=== PATIENT | female | born 1990 | race Caucasian/White ===

== ENCOUNTER 2020-09-22 16:17 | Inpatient (IN) | payer OTHER, SELFPAY ==
--- NOTE | 2020-09-22 | ECG_ITS ---
Test Reason : CHEST PAIN Blood Pressure : / mmHG Vent. Rate : 110 BPM Atrial Rate : 110 BPM P-R Int : 134 ms QRS Dur : 086 ms QT Int : 322 ms P-R-T Axes : 061 051 044 degrees QTc Int : 435 ms Sinus tachycardia Possible Left atrial enlargement Borderline ECG When compared with ECG of 06-JAN-2020 02:18, Nonspecific T wave abnormality has replaced inverted T waves in Anterior leads Referred By: Generic ED Physician Electronically Signed By:ISIS SCHULZ MD
[2020-09-22 16:42] VITALS: BP 158/76; PULSE 110; RESP 16; TEMP 36.8; O2SAT 97; BMI 23.6
[2020-09-22 20:11] VITALS: BP 153/72; PULSE 126; RESP 20; TEMP 37.9; O2SAT 97
--- NOTE | 2020-09-22 20:12 | ED_ITS ---
HPI - Anxiety General Chief Complaint: Anxiety Stated Complaint: chest pain Time Seen by Provider: 09/22/20 20:02 Source: patient Mode of arrival: ambulatory Limitations: no limitations History of Present Illness HPI narrative: 29-year-old female with past medical history of anxiety presents with multiple complaints. States have chest pain, difficulty breathing, sore throat, and panic. She has not report any specific stressors, but states that she has been having a difficult time taking deep breath, does not report to be on any hormones or control, denies any recent flights or travel. MD complaint: anxiety, heart racing and shortness of breath Onset (ago): day(s) Symptoms: dyspnea, chest pain, palpitations, extremity numbness/tingling and muscle cramps Severity: moderate Quality: constant History of similar episodes: Yes Provoking factors: none known Relieving factors: nothing Associated symptoms: denies other symptoms Related Data Home Medications Medication Instructions Recorded Confirmed hydroxyzine pamoate 1 cap PO TID PRN 09/22/20 09/22/20 Allergies Allergy/AdvReac Type Severity Reaction Status Date / Time No Known Allergies Allergy Verified 09/22/20 20:13 Review of Systems Review of Systems: Constitutional: No Fever, No Chills ENT/Mouth: No Ear Pain, No Nasal Congestion, No sore throat Eyes: No Eye Pain, No Swelling, No Redness Cardiovascular: Positive palpitations, positive Chest Pain, positive SOB Respiratory: No Cough, No Sputum, No Dyspnea Gastrointestinal: No Nausea, No Vomiting, No Diarrhea, No Hematochezia, No Melena Genitourinary: No Dysuria, No Urinary Frequency, No Hematuria Musculoskeletal: No Myalgias Skin: No Skin Lesions, No rash Neuro: No Weakness, No Numbness, No Paresthesias, No Dizziness, No Headache Psych: positive Anxiety, no Depression, no SI/HI Heme/Lymph: No Lymphadenopathy Endocrine: No Polyuria, No Polydipsia Yes all other systems are reviewed and are negative PMFSH Past Medical History Attestation statement: The following information was validated with the patient. Source: old records reviewed Social History Social History Alcohol intake: current Patient Tobacco Use Status: Former Tobacco user Smoked in Last 30 Days: Yes Use of substances other than those prescribed or required for medical reasons: Yes Substance Use Type: Marijuana Advance Directives: No Patient : No Physical Exam Vital Signs: Vital Signs: Last Vital Signs Temp 97.6 F 09/23/20 00:00 Pulse 91 09/23/20 00:00 Resp 20 09/23/20 00:00 BP 123/63 09/23/20 00:00 Pulse Ox 97 09/23/20 00:00 Body Mass Index 23.6 Appearance: Alert. Oriented X3. No acute distress. Head: Normal external exam. Normocephalic. Atraumatic. No Marte signs noted. No raccoon eyes noted Eyes: PERRLA. EOMI. Conjunctiva and sclera normal. Eyelids normal. ENT: TM's Normal. Pharynx normal. Uvula midline. Moist mucous membranes. No trismus noted. No drooling noted. No muffled voice noted. Neck: Normal inspection. Neck supple. No adenopathy. Thyroid Normal. No meningeal signs. No neck mass noted. CVS: Normal heart rate and rhythm. Heart sound normal. No murmurs noted. Pulses equal to all extremities. Respiratory: No respiratory distress. Painless inspiration. Breath sounds linnea l. No wheezes/rales/rhonchi noted. Chest nontender. No accessory muscle usage noted or decreased air movement noted. Abdomen: Soft and nontender. Bowel sounds normal in all 4 quadrants. No distention noted. No organomegaly noted. No visible injury noted. Back: No CVA tenderness. Full range of motion noted. Skin: Skin warm and dry. Normal skin color. Normal skin turgor. No rashes/lesions/lacerations noted. Extremities: No lower extremity edema. Extremities exhibit normal range of motion. Extremities nontender. Neuro: cranial nerves 2-12 intact, no focal neural deficits, strength 5/5 to all extremities, No motor deficit. No sensory deficit. Course Course Course Narrative: 29-year-old female presents with multiple complaints, most likely related to anxiety however she does have tachycardia and some shortness of breath. While she does not have any significant comorbidities for PE, I will order D-dimer, showed D-dimer be elevated we will pursue PE studies. EKG showed sinus tachycardia and she does report shortness of breath Multiple discussions regarding lab values and negative findings. Patient has had difficult time obtaining medication management for her anxiety, states that she was unable to make appointments secondary to COVID as well as her own scheduling conflicts. Her mom was just diagnosed with an adrenal mass, her grandmother is ill, and she feels that the weight of the world is a bit too much for her to handle at this time. She does have a history of psych admission to [facility], was started on lithium and risperidone all however the medications were not working appropriately for her. The provider that she was seeing at the time had her wean off of these medications. She has not been on any medications to help control anxiety and bipolar disorder since. She has been trying natural passing method such as yoga, meditation, and exercise however her efforts have not been effective. Lab values are unremarkable with no indication of organic reason for tachycardia and shortness breath, most likely related to panic and anxiety. Patient would like a psychiatric consult as well as crisis consult. Patient will be voluntary. 12:44 a.m.. Physician observation started at this time. Pending BHN and psychiatric consult. MDM - Anxiety Differential Diagnosis Differential diagnosis: Likely hyperventilation, panic disorder and acute anxiety Medical Records Attestation: I reviewed the patient's medical records. Lab Data Attestation: I reviewed the patient's lab results. Result diagrams: 09/22/20 20:34 09/22/20 20:34 Labs: Lab Results 09/22/20 09/22/20 09/22/20 Range/Units 20:34 20:34 20:34 WBC 9.2 (4.8-10.8) X10*3/uL RBC 4.97 (4.20-5.50) X10*6/uL Hgb 15.3 (12.0-16.0) g/dl Hct 44.6 (37-47) % MCV 89.7 (80-98) fL MCH 30.8 (27.0-33.0) pg MCHC 34.3 (31.0-35.0) g/dl RDW 12.2 (11.0-16.0) % Plt Count 289 (160-400) X10*3/uL MPV 9.8 (9.4-12.3) fL Immature Gran % (Auto) 0.3 (0.0-0.4) % Neut % (Auto) 76.2 H (45-73) % Lymph % (Auto) 16.7 L (20-40) % [place] % (Auto) 5.3 (2-11) % Eos % (Auto) 1.2 (0-4) % Baso % (Auto) 0.3 (0-2) % Lymph # (Auto) 1.5 (1.2-4.9) X10*3/uL [place] # (Auto) 0.5 (0.1-1.2) X10*3/uL Eos # (Auto) 0.1 (0.0-0.4) X10*3/uL Baso # (Auto) 0.0 (0.0-0.2) X10*3/uL Abs Immat Gran (auto) 0.03 (0.00-0.03) X10*3/uL Absolute Neuts (auto) 7.0 (2.0-8.3) X10*3/uL Absolute Nucleated RBC 0.000 (0.0-0.012) X10*3/uL Nucleated RBC % (auto) 0.0 (0.0-0.2) /100WBC D-Dimer < 200 NG/ML Sodium 140 (135-145) mmol/L Potassium 3.6 (3.3-5.1) mmol/L Chloride 105 (96-108) mmol/L Carbon Dioxide 24 (22-29) mmol/L Anion Gap 15 (12-20) BUN 6 L (9-16) mg/dL Creatinine 0.74 (0.5-1.4) mg/dL Estim Creat Clear Calc 115.2 Estimated GFR > 60 Random Glucose 106 (60-115) mg/dL Calcium 10.0 (8.4-10.2) mg/dL TSH 1.26 (0.32-4.0) uIU/mL ECG Data Attestation: I personally reviewed and interpreted this ECG as follows: ECG interpretation date: 09/22/20 ECG interpretation time: 16:32 Interpretation: Vent. rate 110 BPM IN interval 134 ms QRS duration 86 ms QT/QTc 322/435 ms P-R-T axes 61 51 44 Sinus tachycardia Possible Left atrial enlargement Borderline ECG When compared with ECG of 06-JAN-2020 02:18, Nonsp ecific T wave abnormality has replaced inverted T waves in Anterior leads Discharge Plan Discharge Clinical Impression: Acute anxiety, Panic disorder Prescriptions: No Action hydroxyzine pamoate 50 mg capsule 1 cap PO TID PRN (Reason: anxiety) RF: 0
[2020-09-22] MEDS: 0.9 % Sodium Chloride 1,000 ML 999 ML IVCONT (20:37)
[2020-09-22] MEDS: LORazepam 2 MG/ML VIAL 1 MG IVPUSH (20:40)
[2020-09-22 20:41] LABS: MANUAL DIFF FLAG NO
[2020-09-22 20:42] LABS: Basophils Percent Auto 0.3 % (0-2); Eosinophils Absolute Auto 0.1 X10*3/uL (0.0-0.4); Eosinophils Percent Auto 1.2 % (0-4); Hematocrit 44.6 % (37-47); Hemoglobin 15.3 g/dl (12.0-16.0); Imm Gran Abs Auto 0.03 X10*3/uL (0.00-0.03); Imm Gran Pct Auto 0.3 % (0.0-0.4); Lymphocytes Absolute Auto 1.5 X10*3/uL (1.2-4.9); Lymphocytes Percent Auto 16.7 % (20-40); Mean Corpuscular HGB Conc 34.3 g/dl (31.0-35.0); Mean Corpuscular Hemoglobin 30.8 pg (27.0-33.0); Mean Corpuscular Volume 89.7 fL (80-98); Mean Platelet Volume 9.8 fL (9.4-12.3); Monocytes Absolute Auto 0.5 X10*3/uL (0.1-1.2); Monocytes Percent Auto 5.3 % (2-11); Neutrophils Percent Auto 76.2 % (45-73); Platelet Count 289 X10*3/uL (160-400); Red Blood Count 4.97 X10*6/uL (4.20-5.50); Red Cell Distribution Width 12.2 % (11.0-16.0); White Blood Count 9.2 X10*3/uL (4.8-10.8)
[2020-09-22 20:54] LABS: D Dimer < 200 NG/ML
[2020-09-22 21:05] LABS: Anion Gap 15 (12-20); Blood Urea Nitrogen 6 mg/dL (9-16); Carbon Dioxide 24 mmol/L (22-29); Chloride 105 mmol/L (96-108); Creatinine Clr Calc Pharmacy 115.2; Estimated Glomerular Filt Rate > 60; Glucose Random 106 mg/dL (60-115); Potassium 3.6 mmol/L (3.3-5.1); Sodium 140 mmol/L (135-145)
[2020-09-22 21:26] LABS: Thyroid Stimulating Hormone 1.26 uIU/mL (0.32-4.0)
[2020-09-22 22:00] VITALS: RESP 16
--- NOTE | 2020-09-22 22:57 | PC.NURSE ---
pt feeling anxiouse, manic, teaching on how to calm self reviewed with the pt and counting helps the pt. pt also has a friend at the bedside who has a good calming effect with the pt. pt also medicated with ativan and ivf with good effect. pt denies s1 or h1. provider at the bedside and pt wants to be seen by the care team/crisis. pt is very worried about how she is feeling and is kicking in her anxiety/bipolor.
--- NOTE | 2020-09-22 23:01 | PC.NURSE ---
PT TRANSFERRED FROM [facility] TO [facility]. FIRST CONTACT WITH PT. A&Ox4, CALM COOPERATIVE AND PLEASANT WITH THIS RN. SKIN PWD RESPIRATIONS EVEN UNLABORED. REPORTS INCREASED ANXIETY DENIES SI/HI. HAS NOT BEEN ON MEDS SINCE PREVI[place] AD[place] [facility] CHANGED INTO HOSPITAL ATTIRE AND BELONGINGS PLACED IN [place]. AWAITING [facility] CONSULT. AWARE OF PLAN OF CARE.
[2020-09-23] VITALS: BP 123/63; PULSE 91; RESP 20; TEMP 36.4; O2SAT 97
--- NOTE | 2020-09-23 00:09 | PC.NURSE ---
PT RESTING IN BED EYES CLOSED NO DISTRESS NOTED, AWAITING [facility] CONSULT- PER PATRICA AT [facility] PT WILL NOT BE SEEN UNTIL AM.
[2020-09-23 04:00] VITALS: RESP 16
--- NOTE | 2020-09-23 04:27 | PC.NURSE ---
PT RESTING IN BED EYES CLOSED SKIN PWD, RESPIRATIONS EVEN UNLABORED. AWAITING [facility] CONSULT. VISIBLE ON CAMERA.
[2020-09-23 06:00] VITALS: PULSE 16
--- NOTE | 2020-09-23 07:41 | PC.NURSE ---
Report received from Nica RN, pt pleasant in conversation, slowly pacing in front of nurses station reading a book. Awaiting [facility]N at this time.
--- NOTE | 2020-09-23 08:27 | PC.NURSE ---
Thom from CARE team at bedside for eval.
[2020-09-23] MEDS: LORazepam 1 MG TABLET PO ×3 (09:24→22:30)
--- NOTE | 2020-09-23 09:25 | PC.NURSE ---
Pt endorsing anxiety and requesting for PRN ativan, pt medicated with ativan as charted per jun.
--- NOTE | 2020-09-23 09:43 | PC.NURSE ---
Per CARE team plan for pt to go inpatient.
[2020-09-23 09:51] VITALS: BP 157/61; PULSE 103; RESP 16; TEMP 36.8; O2SAT 95
[2020-09-23 10:39] VITALS: RESP 18
--- NOTE | 2020-09-23 10:39 | P.CNPS_ITS ---
History of Present Illness Date of Service: 09/22/20 Chief Complaint: chest pain Reason for Consult: to assess medications; however pt was bed search and about to be transferred and nursing staff reported patient was calm, in good behavioral control so consult deferred. Diagnostics Vital Signs (24Hr): Vital Signs - 24 hr 09/22/20 16:42 09/22/20 20:11 09/22/20 22:00 Temperature 98.3 F 100.2 F Pulse Rate 110 H 126 H Respiratory Rate 16 20 16 Blood Pressure 158/76 H 153/72 H Pulse Oximetry 97 97 09/23/20 00:00 09/23/20 04:00 09/23/20 06:00 Temperature 97.6 F Pulse Rate 91 16 L Respiratory Rate 20 16 Blood Pressure 123/63 Pulse Oximetry 97 09/23/20 09:51 Temperature 98.2 F Pulse Rate 103 H Respiratory Rate 16 Blood Pressure 157/61 H Pulse Oximetry 95 Body Mass Index 23.6 Labs Results: 09/22/20 20:34 09/22/20 20:34 Labs: Laboratory Results - last 48 hr 09/22/20 09/22/20 09/22/20 20:34 20:34 20:34 WBC 9.2 RBC 4.97 Hgb 15.3 Hct 44.6 MCV 89.7 MCH 30.8 MCHC 34.3 RDW 12.2 Plt Count 289 MPV 9.8 Immature Gran % (Auto) 0.3 Neut % (Auto) 76.2 H Lymph % (Auto) 16.7 L [place] % (Auto) 5.3 Eos % (Auto) 1.2 Baso % (Auto) 0.3 Lymph # (Auto) 1.5 [place] # (Auto) 0.5 Eos # (Auto) 0.1 Baso # (Auto) 0.0 Abs Immat Gran (auto) 0.03 Absolute Neuts (auto) 7.0 Absolute Nucleated RBC 0.000 Nucleated RBC % (auto) 0.0 D-Dimer < 200 Sodium 140 Potassium 3.6 Chloride 105 Carbon Dioxide 24 Anion Gap 15 BUN 6 L Creatinine 0.74 Estim Creat Clear Calc 115.2 Estimated GFR > 60 Random Glucose 106 Calcium 10.0 TSH 1.26 Medications Medications Current Medications Generic Name Dose Route Start Last Admin Trade Name Freq PRN Reason Stop Dose Admin Lorazepam 1 mg 09/23/20 00:45 09/23/20 09:24 Lorazepam 1 Mg Tablet PO 1 mg TID PRN Administration Anxiety Allergies Allergies Allergy/AdvReac Type Severity Reaction Status Date / Time No Known Allergies Allergy Verified 09/22/20 20:13 Assessment & Plan Greater than 50% of the session was spent on counseling and/or coordination of care
[2020-09-23] MEDS: Ibuprofen 600 MG TABLET PO (10:49)
[2020-09-23] MEDS: Dicyclomine HCl 10 MG CAPSULE PO (10:49)
[2020-09-23 10:50] LABS: COVID-19 Test Negative (Negative)
[2020-09-23 18:00] VITALS: BP 124/63; PULSE 88; TEMP 36.5; O2SAT 98
--- NOTE | 2020-09-23 19:06 | PC.NURSE ---
Pt signed a 3-day notice on 09/23/20, up on Thursday09/26/20
--- NOTE | 2020-09-23 23:07 | PC.ADMIT ---
Pt is a 29 year old female who came in to the ED with complaints of abdominal and chest pain. Per pt it kind of radiates to my neck and the left side of my upper back. Pt stated in 1:1 conversation that she thinks it is due to anxiety but wants to make sure that nothing is going on internally. Pt denies AH/VH per eval she mentioned that she receives messages from [employer], stating she is spiritual. Believes that the [place] are tampering with [place] food. Did not have these discussions during 1:1. Very somatically focused. Does have a medical hx of ovarian cysts, non-surgical. Requested imaging for my lungs, test and if I can have a javascript engineer... especially more labs because I once had a blood sugar of 30[facility]. Mother reports her behavior began 7-8 weeks ago where she has began to behave strangely. Reports a decrease in sleep and appetite (describes sharp pain when she eats). Non-medication compliant since February 2020. Medications ordered and obtained by doctor clothing consultant.
[2020-09-24 04:04] LABS: Vitamin B12 292 pg/mL (200-900)
[2020-09-24 06:00] VITALS: BP 115/72; PULSE 89; TEMP 36.2; O2SAT 94
[2020-09-24] MEDS: risperiDONE 1 MG TABLET PO (08:54)
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
[2020-09-24] MEDS: Docusate Sodium 100 MG CAPSULE PO (10:44)
[2020-09-24] MEDS: FLUoxetine HCl 10 MG CAPSULE PO (15:07)
[2020-09-24] MEDS: LORazepam 1 MG TABLET PO (15:07)
[2020-09-24 16:23] LABS: Amphetamine Screen Urine Not Detected (Not Detect); Barbiturates, Urine Not Detected (Not Detect); Benzodiazepines Screen Urine Not Detected (Not Detect); Cannabinoid Screen Urine POSITIVE (Not Detect); Cocaine Screen Urine Not Detected (Not Detect); Opiate Screen Urine Not Detected (Not Detect); Phencyclidine Screen Urine Not Detected (Not Detect)
[2020-09-24 18:00] VITALS: BP 122/74; PULSE 92; TEMP 36.6
[2020-09-24] MEDS: Ziprasidone 20 MG CAPSULE PO (21:02)
[2020-09-24] MEDS: traZODone HCL 50 MG TABLET PO (22:35)
[2020-09-25 06:00] VITALS: BP 108/70; PULSE 92; RESP 16; TEMP 36.6; O2SAT 97
[2020-09-25 06:27] LABS: Glucose, Whole Blood 91 mg/dL (60-115)
[2020-09-25] MEDS: Ziprasidone 20 MG CAPSULE PO ×2 (09:56→21:22)
[2020-09-25] MEDS: FLUoxetine HCl Oral Solution 20 MG/5 ML SOLUTION 10 MG PO (09:56)
[2020-09-25] MEDS: Magnesium Hydrox/Alum Hydrox 30 ML ORAL.SUSP PO (09:56)
[2020-09-25] MEDS: LORazepam 1 MG TABLET PO (10:59)
--- NOTE | 2020-09-25 16:20 | P.PNPSI_ITS ---
Subjective Subjective Date of Service: 09/25/20 Reason For Visit: Bipolar Interim History: pt denies any side effects from medications. she states she slept well last night and is happy with her current regimen. she does c/o panicky feelings, for which she took ativan with good result today. she asks about getting prozac as a pill rather than as a liquid; she would prefer not to have to measure out liquids at home. also, she c/o a mass in her abd LLQ, in conjunction with heartburn, difficulty passing feces and flatus, sensation of twisting there. planning to F/U re medical complaints after discharging tomorrow. no other complaints or requests. Mental Status Exam Mental Status Exam Narrative: well groomed and dressed, cooperative, no PMA/PMR. speech normal in rate, amount, loudness, tone, latency. thoughts linear and logical without psychotic content, affect full range appropriate to context normo-intense and non-labile. mood anxious with periods of severe anxiety, no AVH/SI/HI expressed. Diagnostics Vital Signs (24Hr): Vital Signs - 24 hr 09/24/20 18:00 09/25/20 06:00 Temperature 97.8 F 98 F Pulse Rate 92 92 Respiratory Rate 16 Blood Pressure 122/74 108/70 Pulse Oximetry 97 Body Mass Index 23.6 Labs Results: 09/22/20 20:34 09/22/20 20:34 Labs: Laboratory Results - last 48 hr 09/22/20 09/24/20 09/25/20 20:34 15:34 06:19 POC Glucose 91 Vitamin B12 292 Urine Opiates Screen Not Detected Ur Barbiturates Screen Not Detected Ur Phencyclidine Scrn Not Detected Ur Amphetamines Screen Not Detected U Benzodiazepines Scrn Not Detected Urine Cocaine Screen Not Detected U Marijuana (THC) Screen POSITIVE H Medications Medications Current Medications Generic Name Dose Route Start Last Admin Trade Name Freq PRN Reason Stop Dose Admin Acetaminophen 650 mg 09/23/20 14:31 Acetaminophen 325 Mg Tablet PO Q6H PRN Headache/Pain Mild Scale (1-3) Al Hydroxide/Mg Hydroxide 30 ml 09/23/20 14:31 09/25/20 09:56 Magnesium Hydrox/Alum Hydrox 30 Ml Oral.Susp PO 30 ml Q6H PRN Administration Heartburn/Nausea Docusate Sodium 100 mg 09/24/20 09:22 09/24/20 10:44 Docusate Sodium 100 Mg Capsule PO 100 mg BID PRN Administration Constipation Fluoxetine HCl 10 mg 09/25/20 09:00 09/25/20 09:56 Fluoxetine Hcl Oral Solution 20 Mg/5 Ml Solution PO 10 mg DAILY HANS Administration Hydroxyzine HCl 25 mg 09/23/20 14:31 Hydroxyzine Hcl 25 Mg Tablet PO TID PRN mild Anxiety Lorazepam 1 mg 09/24/20 14:08 09/25/20 10:59 Lorazepam 1 Mg Tablet PO 1 mg DAILY PRN Administration severe anxiety Magnesium Hydroxide 30 ml 09/23/20 14:31 Milk Of Magnesia 30 Ml Oral.Susp PO DAILY PRN Constipation Nicotine Polacrilex 4 mg 09/23/20 14:31 Nicotine Polacrilex 2 Mg Gum BUCCAL Q2H PRN Nicotine Cravings Trazodone HCl 50 mg 09/24/20 21:00 09/24/20 22:35 Trazodone Hcl 50 Mg Tablet PO 50 mg BEDTIME HANS Administration Trazodone HCl 50 mg 09/24/20 18:05 Trazodone Hcl 50 Mg Tablet PO BEDTIME PRN continued insomnia Ziprasidone 20 mg 09/25/20 09:00 09/25/20 09:56 Ziprasidone 20 Mg Capsule PO 20 mg BID HANS Administration Allergies Allergies Allergy/AdvReac Type Severity Reaction Status Date / Time No Known Allergies Allergy Verified 09/22/20 20:13 Assessment & Plan Assessment & Plan (1) Acute anxiety: Status: Acute Code(s): F41.9 - Anxiety disorder, unspecified (2) MDD (major depressive disorder), recurrent episode, severe: Status: Acute Code(s): F33.2 - Major depressive disorder, recurrent severe without psychotic features Assessment and Plan: IMPRESSION: 29-year-old female who was diagnosed with bipolar disorder last year with admission to [facility] apt to. Patient soon when off her medications. Over the past year she has had depression. Over the past 2 weeks patient has overcome depression. There is currently a debate between her and her mom whether her current behaviors represent selam or a combination of excitement and anxiety. Patient does not want mood stabilizing medications but instead wants a trial of Prozac to address her depression and anxiety. Ship Keeper discussed and patient fully understands the side effects and risks of Prozac including potential to trigger manic episode however she feels she deserves a trial of this medication and is willing to take these risks. She says if I get manic and have to stay i n the hospital or come back to the hospital than fine then i'll know. Part of her aversion to mood stabilizers is how she felt on lithium. Patient denies PTSD symptoms. Currently, patient's presentation is somewhat confusing. Though there is a hint of hypomania, she is able to sit very calmly with advertising copywriter and discuss her current situation and history in an appropriate, logical and linear way; she is able to offer a reasonable explanation for her behaviors that do not sound manic. Patient reports that despite only getting 4-5 hours of sleep a night, she is tired and would like to sleep more. Patient says much of her anxiety is around her step father's illness and mother's recent illness; her mother Mother concurs and acknowledges that patient is and impressionable person and that patient's stepfather is quite manipulative and tries to fan the flames of patient's anxiety around his illness. It is also possible that anxiety, high expressed emotion and PTSD (though patient denies symptoms, it is possible she is more affected than realizes) can present like selam. That said, while any one behavior can be explained, there is a constellation of reported manic-type behaviors that gives advertising copywriter pause. Of note, soon after dinner, patient went to her bedroom and was asleep, without trazodone. Ship Keeper has asked nursing to be aware of patient's behavior to see if any manic type behaviors present. PLAN: Trazodone 50 mg scheduled Trazodone 50 mg p.r.n. for continued insomnia continue Prozac 10 mg daily; requesting pill/tab rather than liquid upon discharge. continue geodon 20 BID; pt advised to take with meals. Will try to get collateral from patient's recent psychiatric provider Dr. Plaza. pt planning for discharge tomorrow. Greater than 50% of the session was spent on counseling and/or coordination of care Reason for contiued inpatient stay Substantial Risk for: inability to function
[2020-09-25] MEDS: Acetaminophen 325 MG TABLET 650 MG PO (16:21)
[2020-09-25 17:33] VITALS: BP 131/59; PULSE 94; RESP 16; TEMP 36.5; O2SAT 100
[2020-09-25] MEDS: Milk of Magnesia 30 ML ORAL.SUSP PO (21:32)
[2020-09-25 22:28] LABS: Glucose, Whole Blood 100 mg/dL (60-115)
[2020-09-25] MEDS: traZODone HCL 50 MG TABLET PO (23:04)
--- NOTE | 2020-09-26 | ECG_ITS ---
Test Reason : MED MANAGEMENT Blood Pressure : / mmHG Vent. Rate : 075 BPM Atrial Rate : 075 BPM P-R Int : 138 ms QRS Dur : 084 ms QT Int : 370 ms P-R-T Axes : 038 055 033 degrees QTc Int : 413 ms Normal sinus rhythm with sinus arrhythmia Normal ECG When compared with ECG of 22-SEP-2020 16:32, No significant change was found Referred By: Abdulkadir George Electronically Signed By:MILENA AGUIRRE
[2020-09-26 06:00] VITALS: BP 153/67; PULSE 104; RESP 17; TEMP 36.2; O2SAT 96
[2020-09-26 06:06] LABS: Glucose, Whole Blood 84 mg/dL (60-115)
[2020-09-26] MEDS: Ziprasidone 20 MG CAPSULE PO (09:22)
[2020-09-26] MEDS: FLUoxetine HCl Oral Solution 20 MG/5 ML SOLUTION 10 MG PO (09:22)
--- NOTE | 2020-09-26 13:42 | HO.PSYCHPN ---
Subjective Subjective Date of Service: 09/26/20 Reason For Visit: Bipolar Subjective Notes: Conditional Voluntary and 3 Day Interim History: pt reports she's feeling much better and that her thoughts have slowed down and she's able to organize them. She also feels less overall worried about things. Pt did however, come to the conclusion that she has bipolar disorder. Patient also feels that currently she is still feeling a little over excited and agrees to increase evening dose ziprasidone to 40 mg. Desk Manager agrees as patient has some mildly pressured speech. She is sleeping at night, but says that is only because she has trazodone which she finds helpful. Patient also agrees to rescind his 3 day notice and stay another day or so given that ziprasidone is being increased and real estate underwriter would like to continue to monitor patient. She says she very much wants to go to the wedding on Thursday, but if need be she will remain on the unit as need be. Patient denies any medication side effects Patient S mother and father came to the unit and met with real estate underwriter. Both feel that patient is doing much better and are grateful she will stay another day or so. They all three have come to agree on patient's past behaviors, sharing the same perspective that she was indeed becoming manic and that inpatient admission and mood stabilizing medications were the right move. Parents shared their on dying support to patient how proud of her they are. Mental Status Exam Mental Status Exam Narrative: Pt is alert and oriented; behavior is cooperative, friendly and calm; remains a little hypomanic and though she is also able to sit calmly, and listen to real estate underwriter and respond to and linear, organized way, she is a little animated with her hands in voice.. She is dressed in hospital pants with casual top and with good hygiene; mood is described as good and affect congruent; eye contact appropriate; Speech is a little pressured. thought process linear, logical and goal oriented. Thought content is on figuring out best treatment and pertinent to relevant topics; real estate underwriter cannot solicit any delusional content, paranoid ideations or grandiosity; she denies any SI/HI. There is no evidence of perceptual disturbance. Patients insight and judgment appear intact. Diagnostics Vital Signs (24Hr): Vital Signs - 24 hr 09/25/20 17:33 09/26/20 06:00 Temperature 97.7 F 97.2 F Pulse Rate 94 104 H Respiratory Rate 16 17 Blood Pressure 131/59 L 153/67 H Pulse Oximetry 100 96 Body Mass Index 23.6 Labs Results: 09/22/20 20:34 09/22/20 20:34 Labs: Laboratory Results - last 48 hr 09/24/20 09/25/20 09/25/20 15:34 06:19 21:29 POC Glucose 91 100 Urine Opiates Screen Not Detected Ur Barbiturates Screen Not Detected Ur Phencyclidine Scrn Not Detected Ur Amphetamines Screen Not Detected U Benzodiazepines Scrn Not Detected Urine Cocaine Screen Not Detected U Marijuana (THC) Screen POSITIVE H 09/26/20 05:55 POC Glucose 84 Urine Opiates Screen Ur Barbiturates Screen Ur Phencyclidine Scrn Ur Amphetamines Screen U Benzodiazepines Scrn Urine Cocaine Screen U Marijuana (THC) Screen Medications Medications Current Medications Generic Name Dose Route Start Last Admin Trade Name Freq PRN Reason Stop Dose Admin Acetaminophen 650 mg 09/23/20 14:31 09/25/20 16:21 Acetaminophen 325 Mg Tablet PO 650 mg Q6H PRN Administration Headache/Pain Mild Scale (1-3) Al Hydroxide/Mg Hydroxide 30 ml 09/23/20 14:31 09/25/20 09:56 Magnesium Hydrox/Alum Hydrox 30 Ml Oral.Susp PO 30 ml Q6H PRN Administration Heartburn/Nausea Docusate Sodium 100 mg 09/24/20 09:22 09/24/20 10:44 Docusate Sodium 100 Mg Capsule PO 100 mg BID PRN Administration Constipation Fluoxetine HCl 10 mg 09/26/20 09:00 09/26/20 09:22 Fluoxetine Hcl Oral Solution 20 Mg/5 Ml Solution PO 10 mg DAILY HANS Administration Hydroxyzine HCl 25 mg 09/23/20 14:31 Hydroxyzine Hcl 25 Mg Tablet PO TID PRN mild Anxiety Lorazepam 1 mg 09/24/20 14:08 09/25/20 10:59 Lorazepam 1 Mg Tablet PO 1 mg DAILY PRN Administration severe anxiety Magnesium Hydroxide 30 ml 09/23/20 14:31 09/25/20 21:32 Milk Of Magnesia 30 Ml Oral.Susp PO 30 ml DAILY PRN Administration Constipation Nicotine Polacrilex 4 mg 09/23/20 14:31 Nicotine Polacrilex 2 Mg Gum BUCCAL Q2H PRN Nicotine Cravings Trazodone HCl 50 mg 09/24/20 21:00 06/15/21 23:04 Trazodone Hcl 50 Mg Tablet PO 50 mg BEDTIME HANS Administration Trazodone HCl 50 mg 09/24/20 18:05 Trazodone Hcl 50 Mg Tablet PO BEDTIME PRN continued insomnia Ziprasidone 20 mg 09/27/20 09:00 Ziprasidone 20 Mg Capsule PO DAILY HANS Ziprasidone 40 mg 09/26/20 21:00 Ziprasidone 40 Mg Capsule PO BEDTIME HANS Allergies Allergies Allergy/AdvReac Type Severity Reaction Status Date / Time No Known Allergies Allergy Verified 09/22/20 20:13 Assessment & Plan Assessment & Plan (1) Acute anxiety: Status: Acute Code(s): F41.9 - Anxiety disorder, unspecified (2) MDD (major depressive disorder), recurrent episode, severe: Status: Acute Code(s): F33.2 - Major depressive disorder, recurrent severe without psychotic features Assessment and Plan: IMPRESSION: 29-year-old female who was diagnosed with bipolar disorder last year with admission to [facility] to. Patient soon when off her medications. Over the past year she has had depression. Over the past 2 weeks patient has overcome depression. There is currently a debate between her and her mom whether her current behaviors represent selam or a combination of excitement and anxiety. Patient does not want mood stabilizing medications but instead wants a trial of Prozac to address her depression and anxiety. Desk Manager discussed and patient fully understands the side effects and risks of Prozac including potential to trigger manic episode however she feels she deserves a trial of this medication and is willing to take these risks. She says if I get manic and have to stay in the hospital or come back to the hospital than fine then i'll know. Part of her aversion to mood stabilizers is how she felt on lithium. Patient denies PTSD symptoms. Currently, patient's presentation is somewhat confusing. Though there is a hint of hypomania, she is able to sit very calmly with real estate underwriter and discuss her current situation and history in an appropriate, logical and linear way; she is able to offer a reasonable explanation for her behaviors that do not sound manic. Patient reports that despite only getting 4-5 hours of sleep a night, she is tired and would like to sleep more. Patient says much of her anxiety is around her step father's illness and mother's recent illness; her mother Mother concurs and acknowledges that patient is and impressionable person and that patient's stepfather is quite manipulative and tries to fan the flames of patient's anxiety around his illness. It is also possible that anxiety, high expressed emotion and PTSD (though patient denies symptoms, it is possible she is more affected than realizes) can present like selam. That said, while any one behavior can be explained, there is a constellation of reported manic-type behaviors that gives real estate underwriter pause. 09/26/20 Patient on both ziprasidone 20 mg b.i.d. and Prozac; she has come to the conclusion she does have bipolar disorder and is appreciative of mood stabilizer. Patient is still little hypomanic and agrees to increase an evening dose of ziprasidone. Although real estate underwriter was willing to discharge her today as 3 day notice was up, patient rescinded and agreed to stay another extra day or so as medication is being titrated for continued monitoring. PLAN: Ziprasidone 20 mg daily Increase Ziprasidone to 40 mg at bedtime Trazodone 50 mg scheduled Trazodone 50 mg p.r.n. for continued insomnia continue Prozac 10 mg daily; requesting pill/tab rather than liquid upon discharge. past psychiatric provider Dr. Plaza. Greater than 50% of the session was spent on counseling and/or coordination of care Reason for contiued inpatient stay Substantial Risk for: med/psych decompensation
[2020-09-26 18:00] VITALS: BP 132/62; PULSE 98; RESP 16; TEMP 36.8; O2SAT 95
[2020-09-26] MEDS: LORazepam 1 MG TABLET PO (18:55)
[2020-09-26] MEDS: Ziprasidone 40 MG CAPSULE PO (21:05)
[2020-09-26] MEDS: traZODone HCL 50 MG TABLET PO (21:06)
[2020-09-26 21:15] LABS: Glucose, Whole Blood 107 mg/dL (60-115)
[2020-09-27 06:19] LABS: Glucose, Whole Blood 91 mg/dL (60-115)
[2020-09-27 06:20] VITALS: BP 135/61; PULSE 83; RESP 18; TEMP 36.3; O2SAT 99
[2020-09-27] MEDS: Docusate Sodium 100 MG CAPSULE PO (06:51)
[2020-09-27] MEDS: FLUoxetine HCl 10 MG CAPSULE PO (08:51)
[2020-09-27] MEDS: Ziprasidone 20 MG CAPSULE PO (08:51)
--- NOTE | 2020-09-27 10:07 | HO.PSYCHPN ---
Subjective Subjective Date of Service: 09/27/20 Reason For Visit: Bipolar Interim History: Patient reports she slept well. She is in a good mood. She reports she still feels all little bit over energized but less so than yesterday and found the increased ziprasidone 40 mg at bedtime helpful. Patient says she feels in good behavioral and impulse control and indeed she is able to sit calmly, listen to technical proposal writer and have an appropriate discourse about all topics. She reports her anxiety is a 3-4/10 and says that loud noises and other people's anxiety can also trigger it, however she feels able to utilize coping skills and is trying not to take the Ativan available. Patient also felt really good about yesterday's meeting with her parents and was pleased to see them both getting along. Patient would like to discharge tomorrow, Thursday, to which technical proposal writer agrees. Oil Well Pumper again reviewed medications as well what signs/symptoms may warn of burgeoning manic episode; patient fully understands and will be mindful, taking trazodone for sleep and reaching out for help if she starts to feel out of control. Oil Well Pumper also discussed this with Patient's parents who will also look for signs and symptoms. Patient denies side effects Medication Compliance: Yes Side effects from medications: No Attending Groups: Yes Mental Status Exam Mental Status Exam Narrative: Pt is alert and oriented; behavior is cooperative, friendly and calm; pt does not appear to be hypomanic and is also able to sit calmly, listen and respond to technical proposal writer in a linear and organized way and is w/out being animated. She is dressed in hospital pants with casual top and with good hygiene; mood is described as good and affect congruent; eye contact appropriate; Speech normal rate, volume and prosody; thought process linear, logical and goal oriented. Thought content is on treatment and pertinent to relevant topics; technical proposal writer cannot solicit any delusional content, paranoid ideations or grandiosity; she denies any SI/HI. There is no evidence of perceptual disturbance. Patients insight and judgment appear intact. Diagnostics Vital Signs (24Hr): Vital Signs - 24 hr 09/26/20 18:00 09/27/20 06:20 Temperature 98.2 F 97.4 F Pulse Rate 98 83 Respiratory Rate 16 18 Blood Pressure 132/62 135/61 Pulse Oximetry 95 99 Body Mass Index 23.6 Labs Results: 09/22/20 20:34 09/22/20 20:34 Labs: Laboratory Results - last 48 hr 09/25/20 09/26/20 09/26/20 21:29 05:55 21:12 POC Glucose 100 84 107 09/27/20 06:15 POC Glucose 91 Date of Service: 09/26/20 Procedure(s): ECG 12 lead EKG Vent. Rate : 075 BPM Atrial Rate : 075 BPM P-R Int : 138 ms QRS Dur : 084 ms QT Int : 370 ms P-R-T Axes : 038 055 033 degrees QTc Int : 413 ms Normal sinus rhythm with sinus arrhythmia Normal ECG When compared with ECG of 22-SEP-2020 16:32, No significant change was found Medications Medications Current Medications Generic Name Dose Route Start Last Admin Trade Name Freq PRN Reason Stop Dose Admin Acetaminophen 650 mg 09/23/20 14:31 09/25/20 16:21 Acetaminophen 325 Mg Tablet PO 650 mg Q6H PRN Administration Headache/Pain Mild Scale (1-3) Al Hydroxide/Mg Hydroxide 30 ml 09/23/20 14:31 09/25/20 09:56 Magnesium Hydrox/Alum Hydrox 30 Ml Oral.Susp PO 30 ml Q6H PRN Administration Heartburn/Nausea Docusate Sodium 100 mg 09/24/20 09:22 09/27/20 06:51 Docusate Sodium 100 Mg Capsule PO 100 mg BID PRN Administration Constipation Fluoxetine HCl 10 mg 09/27/20 09:00 09/27/20 08:51 Fluoxetine Hcl 10 Mg Capsule PO 10 mg DAILY HANS Administration Hydroxyzine HCl 25 mg 09/23/20 14:31 Hydroxyzine Hcl 25 Mg Tablet PO TID PRN mild Anxiety Lorazepam 1 mg 09/24/20 14:08 09/26/20 18:55 Lorazepam 1 Mg Tablet PO 1 mg DAILY PRN Administration severe anxiety Magnesium Hydroxide 30 ml 09/23/20 14:31 09/25/20 21:32 Milk Of Magnesia 30 Ml Oral.Susp PO 30 ml DAILY PRN Administration Constipation Nicotine Polacrilex 4 mg 09/23/20 14:31 Nicotine Polacrilex 2 Mg Gum BUCCAL Q2H PRN Nicotine Cravings Trazodone HCl 50 mg 09/24/20 21:00 09/26/20 21:06 Trazodone Hcl 50 Mg Tablet PO 50 mg BEDTIME HANS Administration Trazodone HCl 50 mg 09/24/20 18:05 Trazodone Hcl 50 Mg Tablet PO BEDTIME PRN continued insomnia Ziprasidone 20 mg 09/27/20 09:00 09/27/20 08:51 Ziprasidone 20 Mg Capsule PO 20 mg DAILY HANS Administration Ziprasidone 40 mg 09/26/20 21:00 09/26/20 21:05 Ziprasidone 40 Mg Capsule PO 40 mg BEDTIME HANS Administration Allergies Allergies Allergy/AdvReac Type Severity Reaction Status Date / Time No Known Allergies Allergy Verified 09/22/20 20:13 Assessment & Plan Assessment & Plan (1) Acute anxiety: Status: Acute Code(s): F41.9 - Anxiety disorder, unspecified (2) MDD (major depressive disorder), recurrent episode, severe: Status: Acute Code(s): F33.2 - Major depressive disorder, recurrent severe without psychotic features Assessment and Plan: IMPRESSION: 29-year-old female who was diagnosed with bipolar disorder last year with admission to [facility]. Patient soon when off her medications. Over the past year she has had depression. Over the past 2 weeks patient has overcome depression. There is currently a debate between her and her mom whether her current behaviors represent selam or a combination of excitement and anxiety. Patient does not want mood stabilizing medications but instead wants a trial of Prozac to address her depression and anxiety. Oil Well Pumper discussed and patient fully understands the side effects and risks of Prozac including potential to trigger manic episode however she feels she deserves a trial of this medication and is willing to take these risks. She says if I get manic and have to stay in the hospital or come back to the hospital than fine then i'll know. Part of her aversion to mood stabilizers is how she felt on lithium. Patient denies PTSD symptoms. Currently, patient's presentation is somewhat confusing. Though there is a hint of hypomania, she is able to sit very calmly with technical proposal writer and discuss her current situation and history in an appropriate, logical and linear way; she is able to offer a reasonable explanation for her behaviors that do not sound manic. Patient reports that despite only getting 4-5 hours of sleep a night, she is tired and would like to sleep more. Patient says much of her anxiety is around her step father's illness and mother's recent illness; her mother Mother concurs and acknowledges that patient is and impressionable person and that patient's stepfather is quite manipulative and tries to fan the flames of patient's anxiety around his illness. It is also possible that anxiety, high expressed emotion and PTSD (though patient denies symptoms, it is possible she is more affected than realizes) can present like selam. That said, while any one behavior can be explained, there is a constellation of reported manic-type behaviors that gives technical proposal writer pause. 09/26/20 Patient on both ziprasidone 20 mg b.i.d. and Prozac; she has come to the conclusion she does have bipolar disorder and is appreciative of mood stabilizer. Patient is still little hypomanic and agrees to increase an evening dose of ziprasidone. Although technical proposal writer was willing to discharge her today as 3 day notice was up, patient rescinded and agreed to stay another extra day or so as medication is being titrated for continued monitoring. remains stable PLAN:\ remains stable dc on Thursday Ziprasidone 20 mg daily Increase Ziprasidone to 40 mg at bedtime Trazodone 50 mg scheduled Trazodone 50 mg p.r.n. for continued insomnia continue Prozac 10 mg daily; requesting pill/tab rather than liquid upon discharge. past psychiatric provider Dr. Plaza. Greater than 50% of the session was spent on counseling and/or coordination of care Reason for contiued inpatient stay Substantial Risk for: other (dc tommorrow )
[2020-09-27] MEDS: LORazepam 1 MG TABLET PO (14:36)
[2020-09-27] MEDS: Simethicone 80 MG TAB.CHEW PO (17:51)
[2020-09-27 18:22] VITALS: BP 133/67; PULSE 96; TEMP 36.9
[2020-09-27] MEDS: Ziprasidone 40 MG CAPSULE PO (21:01)
[2020-09-27] MEDS: traZODone HCL 50 MG TABLET PO (21:49)
[2020-09-27 21:50] LABS: Glucose, Whole Blood 96 mg/dL (60-115)
[2020-09-28 06:00] VITALS: BP 121/70; PULSE 80; RESP 18; TEMP 36.2; O2SAT 98
[2020-09-28 07:09] LABS: Glucose, Whole Blood 88 mg/dL (60-115)
[2020-09-28] MEDS: Ziprasidone 20 MG CAPSULE PO (08:31)
[2020-09-28] MEDS: FLUoxetine HCl 10 MG CAPSULE PO (08:31)
--- NOTE | 2020-09-28 09:13 | P.DS_ITS ---
DS: Providers Provider Date of Service: 09/28/20 Date of admission: 09/23/20 13:59 Primary care physician: None Physician DS: Diagnosis Discharge Diagnosis (1) Moderate bipolar I disorder, recurrent manic episode: Status: Chronic Problem details: most recent episode manic (following depressive episode) (2) Chronic post-traumatic stress disorder (PTSD): Status: Suspected (3) Anxiety disorder: Status: Chronic Problem details: r/o CECY (4) Panic disorder: Status: Suspected DS: Medications Discharge Medications Home Medications: Previous Rx's Medication Instructions Recorded fluoxetine 10 mg PO DAILY 30 Days #30 cap 09/28/20 lorazepam 1 mg PO DAILY PRN 30 Days #7 tab 09/28/20 trazodone 50 mg PO BEDTIME PRN 30 Days #30 09/28/20 tab ziprasidone HCl 20 mg PO DAILY 30 Days #30 cap 09/28/20 ziprasidone HCl 40 mg PO BEDTIME 30 Days #30 cap 09/28/20 Discharge Plan Discharge Patient Disposition: Home, Self-Care Discharge Diagnosis: Bipolar I disorder, moderate, recurrent, most recent episode manic, currently in full remission Referrals: Therapist: Connie Pollock ([employer]) [Other] - 10/01/20 2:00 pm (In-office appointment; please arrive 15 minutes early to complete paperwork. ) [facility] - 10/02/20 3:20 pm (Telehealth) Physician,None [Primary Care Provider] - 1 Week Discharge Medications: New fluoxetine 10 mg Capsule 10 mg PO DAILY 30 Days Qty: 30 RF: 0 lorazepam 1 mg Tablet 1 mg PO DAILY PRN (Reason: severe anxiety) 30 Days Qty: 7 RF: 0 trazodone 50 mg Tablet 50 mg PO BEDTIME PRN (Reason: insomnia) 30 Days Qty: 30 RF: 0 ziprasidone HCl 20 mg Capsule 20 mg PO DAILY 30 Days Qty: 30 RF: 0 ziprasidone HCl 40 mg Capsule 40 mg PO BEDTIME 30 Days Qty: 30 RF: 0 Discontinued hydroxyzine pamoate 50 mg capsule 1 cap PO TID PRN (Reason: anxiety) RF: 0 lithium carbonate 450 mg Tablet Extended Release 450 mg PO DAILY RF: 0 risperidone 0.5 mg Tablet 0.5 mg PO BID RF: 0 Discharge Orders: Discharge Order (Routine); Ordered 09/28/20 Ordered By: Abdulkadir George Diet: regular diet Activity on Discharge: As tolerated Stand Alone Forms: Patient Portal Discharge page, Community Support Care Plan Goals: Maintain mood and safe behaviors Take medications as prescribed Avoid cannabis Practice coping skills Continue with outpatient providers and reach out to them as needed Health Concerns: Mood instability and behaviors Depression and anxiety History of Hypoglycemia reported hx of ovarian cysts Plan of Treatment: Follow up with your PCP and Psychiatric provider regarding above concerns Take medications as prescribed Get good sleep Ativan is for panic/severe anxiety Trazodone is for sleep Prozac is for depression and anxiety Ziprasidone is for mood stability Assessment: Risk assessment at time of discharge: Patient has been observed closely by nursing and unit staff throughout admission; patient has not engaged in any behaviors that suggest dangerousness to self or others and has demonstrated appropriate behaviors and impulse control. Patient was interviewed prior to discharge and found to be fully oriented and without any SI or HI. Patient has insight and demonstrates good judgment in terms of wanting to pursue treatment. Patient is not in imminent risk of harm to self or others and has a safety plan that includes presenting to the closest ER or calling 911 if feeling unsafe. Data Data Completed and Pending Completed studies during hospitalization [Text1]: 09/22/20 09/22/20 09/22/20 20:34 20:34 20:34 WBC 9.2 RBC 4.97 Hgb 15.3 Hct 44.6 MCV 89.7 MCH 30.8 MCHC 34.3 RDW 12.2 Plt Count 289 MPV 9.8 Immature Gran % (Auto) 0.3 Neut % (Auto) 76.2 H Lymph % (Auto) 16.7 L [place] % (Auto) 5.3 Eos % (Auto) 1.2 Baso % (Auto) 0.3 Lymph # (Auto) 1.5 [place] # (Auto) 0.5 Eos # (Auto) 0.1 Baso # (Auto) 0.0 Abs Immat Gran (auto) 0.03 Absolute Neuts (auto) 7.0 Absolute Nucleated RBC 0.000 Nucleated RBC % (auto) 0.0 D-Dimer < 200 Sodium 140 Potassium 3.6 Chloride 105 Carbon Dioxide 24 Anion Gap 15 BUN 6 L Creatinine 0.74 Estim Creat Clear Calc 115.2 Estimated GFR > 60 POC Glucose Random Glucose 106 Calcium 10.0 Vitamin B12 TSH 1.26 Urine Opiates Screen Ur Barbiturates Screen Ur Phencyclidine Scrn Ur Amphetamines Screen U Benzodiazepines Scrn Urine Cocaine Screen U Marijuana (THC) Screen COVID-19 (BÁRBARA) COVID-19 [employer] 09/22/20 09/23/20 09/24/20 20:34 10:32 15:34 WBC RBC Hgb Hct MCV MCH MCHC RDW Plt Count MPV Immature Gran % (Auto) Neut % (Auto) Lymph % (Auto) [place] % (Auto) Eos % (Auto) Baso % (Auto) Lymph # (Auto) [place] # (Auto) Eos # (Auto) Baso # (Auto) Abs Immat Gran (auto) Absolute Neuts (auto) Absolute Nucleated RBC Nucleated RBC % (auto) D-Dimer Sodium Potassium Chloride Carbon Dioxide Anion Gap BUN Creatinine Estim Creat Clear Calc Estimated GFR POC Glucose Random Glucose Calcium Vitamin B12 292 TSH Urine Opiates Screen Not Detected Ur Barbiturates Screen Not Detected Ur Phencyclidine Scrn Not Detected Ur Amphetamines Screen Not Detected U Benzodiazepines Scrn Not Detected Urine Cocaine Screen Not Detected U Marijuana (THC) Screen POSITIVE H COVID-19 (BÁRBARA) Negative COVID-[address] See Note 09/25/20 09/25/20 09/26/20 06:19 21:29 05:55 WBC RBC Hgb Hct MCV MCH MCHC RDW Plt Count MPV Immature Gran % (Auto) Neut % (Auto) Lymph % (Auto) [place] % (Auto) Eos % (Auto) Baso % (Auto) Lymph # (Auto) [place] # (Auto) Eos # (Auto) Baso # (Auto) Abs Immat Gran (auto) Absolute Neuts (auto) Absolute Nucleated RBC Nucleated RBC % (auto) D-Dimer Sodium Potassium Chloride Carbon Dioxide Anion Gap BUN Creatinine Estim Creat Clear Calc Estimated GFR POC Glucose 91 100 84 Random Glucose Calcium Vitamin B12 TSH Urine Opiates Screen Ur Barbiturates Screen Ur Phencyclidine Scrn Ur Amphetamines Screen U Benzodiazepines Scrn Urine Cocaine Screen U Marijuana (THC) Screen COVID-19 (BÁRBARA) COVID-[address] 09/26/20 09/27/20 09/27/20 21:12 06:15 21:47 WBC RBC Hgb Hct MCV MCH MCHC RDW Plt Count MPV Immature Gran % (Auto) Neut % (Auto) Lymph % (Auto) [place] % (Auto) Eos % (Auto) Baso % (Auto) Lymph # (Auto) [place] # (Auto) Eos # (Auto) Baso # (Auto) Abs Immat Gran (auto) Absolute Neuts (auto) Absolute Nucleated RBC Nucleated RBC % (auto) D-Dimer Sodium Potassium Chloride Carbon Dioxide Anion Gap BUN Creatinine Estim Creat Clear Calc Estimated GFR POC Glucose 107 91 96 Random Glucose Calcium Vitamin B12 TSH Urine Opiates Screen Ur Barbiturates Screen Ur Phencyclidine Scrn Ur Amphetamines Screen U Benzodiazepines Scrn Urine Cocaine Screen U Marijuana (THC) Screen COVID-19 (BÁRBARA) [employer] 09/28/20 06:47 WBC RBC Hgb Hct MCV MCH MCHC RDW Plt Count MPV Immature Gran % (Auto) Neut % (Auto) Lymph % (Auto) [place] % (Auto) Eos % (Auto) Baso % (Auto) Lymph # (Auto) [place] # (Auto) Eos # (Auto) Baso # (Auto) Abs Immat Gran (auto) Absolute Neuts (auto) Absolute Nucleated RBC Nucleated RBC % (auto) D-Dimer Sodium Potassium Chloride Carbon Dioxide Anion Gap BUN Creatinine Estim Creat Clear Calc Estimated GFR POC Glucose 88 Random Glucose Calcium Vitamin B12 TSH Urine Opiates Screen Ur Barbiturates Screen Ur Phencyclidine Scrn Ur Amphetamines Screen U Benzodiazepines Scrn Urine Cocaine Screen U Marijuana (THC) Screen COVID-19 (BÁRBARA) [employer] DS: Summary Time Spent with Patient Time attestation: Total time spent providing and/or coordinating discharge services:
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
--- NOTE | 2020-09-28 09:57 | PC.NURSE ---
PT IS AWARE AND READY FOR DISCHARGE. SHE DENIES ANY CURRENT DEPRESSION. PT REPORTS MILD ANXIETY BUT IT IS IMPROVING AND HELPED BY PRN MEDICATION. PT DENIES AUDITORY OR VISUAL HALLUCINATIONS. SHE DENIES ANY URGES TO HARM HERSELF OR OTHERS. PT HAS BEEN VISIBLE ON THE UNIT AND SOCIAL WITH PEERS. SHE HAS BEEN ATTENDING AND ACTIVE IN GROUPS. PT IS MEDICATION COMPLIANT. SHE IS OPEN TO EDUCATION REGARDING MEDICATIONS AND COPING SKILLS. PT HAS BEEN PLEASANT, CALM, AND COOPARTIVE WITH HER TREATMENT. SHE IS FUTURE ORIENTED AND HAS SET GOALS FOR HERSELF. PT MAINTAINS [employer] E[employer] CONTACT. SHE HAS BEEN EATING AND SLEEPING WELL. PTS PAPERWORK WILL BE FAXED TO PROVIDERS PER PROTOCOL.
[2020-09-28] MEDS: LORazepam 1 MG TABLET PO (11:31)
== END 2020-09-28 12:10 | disposition home or self-care (01) | DRG 753 ==
LOC: HO.ED 09-23 14:09 → HO.PM5 09-23 14:11
PROVIDERS: Nurse Practitioner Family; Admitting Provider Psychiatry & Neurology Psychiatry; Emergency Provider Emergency Medicine Emergency Medical Services; Visit Provider Psychiatry & Neurology Psychiatry
DX: F31.9 Bipolar disorder, unspecified (principal); F41.9 Anxiety disorder, unspecified; Z20.822 Contact with and (suspected) exposure to COVID-19; F43.12 Post-traumatic stress disorder, chronic; Z87.891 Personal history of nicotine dependence; Z79.899 Other long term (current) drug therapy
CPT/HCPCS: 36415; 80048; 80307; 82607; 82947; 84443; 85025; 85379; 87635; 93005; 99285; J2060